=== PATIENT | male | born 1950 | race Caucasian/White ===

== ENCOUNTER 2016-08-17 15:16 | Emergency (ER) | payer OTHER ==
--- NOTE | ~2016-08-17 | ER ---
PATIENT'S NAME: ANGÉLICA [facility]NA [facility] AGE: 65 Y [address] ROOM: [place] [address] LOCATION: ED ADMIT DATE: 08/17/2016 ER/Outpatient Report DISCHARGE DATE: 08/17/2016 FAMILY PHYSICIAN: PHYSICIAN, NO ATTENDING PHYSICIAN: Ambrosio Field Time of Arrival: 1516 hours. Time of Evaluation: 1525 hours. CHIEF COMPLAINT: Increased urination and increased blood sugars. HISTORY OF PRESENT ILLNESS: The patient is a 65-year-old male who presents to the emergency department today with chief complaint of increased urination and high blood sugars. This has been going on for about a month. He called and talked to the [place], they told him that he should come to the emergency department. He does report that he has had a 30-pound weight loss over the past 3 months. First month, he was dieting and exercising, lost about 10 pounds. He is unsure if he lost in the past 20 pounds. Denies any fevers, chills, nausea, vomiting, diarrhea, or constipation. No back pain. No chest pain. No shortness of breath. No abdominal pain. The patient does report he is taking metformin, although he does not take it exactly as prescribed and has forgotten many doses. Denies any blood in the stool. No dark or tarry stools. PAST MEDICAL HISTORY: Ncn-kfngrdk-zrjsecdke diabetes, hypertension, and gastroesophageal reflux disease. PAST SURGICAL HISTORY: Tonsillectomy. SOCIAL HISTORY: The patient denies any tobacco use. Reports occasional alcohol use. Denies any illicit drug use. ALLERGIES: NO KNOWN DRUG ALLERGIES. MEDICATIONS: Please see list. PRIMARY CARE DOCTOR: Dr. Skye ENRIQUEZ. PATIENT'S NAME: ANGÉLICA [facility] AGE: 65 Y [address] ROOM: [place] [address] LOCATION: ED ADMIT DATE: 08/17/2016 ER/Outpatient Report DISCHARGE DATE: 08/17/2016 FAMILY PHYSICIAN: PHYSICIAN, NO ATTENDING PHYSICIAN: Ambrosio Field REVIEW OF SYSTEMS: All systems are reviewed by myself and are negative with the exception of those discussed in the HPI and past medical history. PHYSICAL EXAMINATION: VITAL SIGNS: Weight 64.1 kg. Blood pressure 129/62, pulse of 99, respiratory rate 18, temperature 97.7, and oxygen saturation 97% on room air. GENERAL: The patient is a 65-year-old male, who appears at stated age, in no acute distress at this time. HEENT: Head: Normocephalic, atraumatic. Pupils are equal, round, and reactive to light and accommodation. Extraocular motions are intact. Nares are patent bilaterally. TMs are clear. Oropharynx is clear. NECK: Supple. There is no nuchal rigidity. CARDIOVASCULAR: Regular rate and rhythm. No murmurs, rubs, or gallops. LUNGS: Clear to auscultation bilaterally. No wheezes, rales, or rhonchi. ABDOMEN: Soft, nontender, nondistended. No rebound, rigidity, or guarding. MUSCULOSKELETAL: The patient moves all 4 extremities. SKIN: Warm and dry. No rashes or lesions noted. LABORATORY DATA AND X-RAYS: Accu-Chek is high. Venous blood gas, 7.43/44/61/29/4.3. Urinalysis, 1000 glucose. Lactate is 2.2. CBC is normal. Acetone is negative. CMP is unremarkable except for a sodium 133, potassium 4.4, glucose 610. LFTs are normal. Cardiac enzymes are normal. Procalcitonin 0.11. Repeat Accu-Cheks 595, 510, 432. IMPRESSION: 1. Elevated blood glucose, poorly controlled diabetes mellitus. 2. Weight loss. 3. Initial visit. EMERGENCY DEPARTMENT COURSE: The patient is brought back to the examination room. Seen and evaluated by myself. IV is established. Laboratory analysis and imaging are obtained as described above. The patient is given a liter of normal saline. He is given 6 units of regular insulin subcutaneously. He is given 60 mEq of potassium chloride. The patient has minimal symptoms at this time. I have discussed the results of the workup with him. I have stressed the importance of following up with primary care doctor. I have discussed with him that he may need an increased medication to help with his blood sugars. I have discussed with him that it would be certainly helpful if he took his medicines as prescribed. In regard to his weight loss, I did discuss with him the concern for potential cancer, and I have recommended further workup including possible endoscopies, colonoscopies. The patient's blood sugar is trending downward after the insulin. I have discussed with the patient that he will need to PATIENT'S NAME: ANGÉLICA [facility]NA [facility] AGE: 65 Y [address] ROOM: [place], [place] [address] LOCATION: [facility] ADMIT DATE: 08/17/2016 ER/Outpatient Report DISCHARGE DATE: 08/17/2016 FAMILY PHYSICIAN: PHYSICIAN, NO ATTENDING PHYSICIAN: Ambrosio Field follow up closely with his primary care doctor. He is to call to see if [facility] can get an [facility]. With the patient's minimal symptoms at this time and his laboratory analysis, I do feel he is safe for further outpatient evaluation. I have discussed [id number] instructions including worsening of symptoms or any other concerns to return to the emergency department as soon as possible. The patient is agreeable. He is without further questions at this time. DISPOSITION: The patient is discharged to home in good condition. DO SHANE PAPPAS/bobl /[id number] d: 08/18/[id number] t: 08/19/16 0931, OUTPATIENT REPORT
[2016-08-17 15:50] LABS: BASOPHIL % 0.4 %; BICARBONATE 29.2 mmol/L (18.0-23.0); EOSINOPHIL # 0.1 K/uL (0.0-0.5); HEMATOCRIT 40.5 % (37.0-53.0); HEMOGLOBIN 14.2 g/dL (11.0-16.0); IMMATURE GRANULOCYTE % 0.1 %; LYMPHOCYTE # 1.9 K/uL (0.8-4.0); LYMPHOCYTE % 27.2 %; MCH 31.4 pg (27.0-34.0); MCHC 35.1 gm/dL (32.0-36.5); MCV 89.6 fl (83.0-98.0); MONOCYTE # 0.7 K/uL (0.0-1.0); MONOCYTE % 9.6 %; NEUTROPHIL # (ANC) 4.4 K/uL (1.4-9.0); NEUTROPHIL % 61.7 %; NRBC % 0 /100WBC (0-0.00); PCO2 44 mmHg (35-45); PLATELET COUNT 226 K/uL (150-450); PO2 61 mmHg (80-90); RBC 4.52 M/uL (3.50-5.50); WBC 7.1 K/uL (4.0-11.0)
[2016-08-17 16:00] LABS: BILIRUBIN URINE NEGATIVE (NEGATIVE); BLOOD URINE NEGATIVE /UL (NEGATIVE); GLUCOSE URINE 1000 mg/dL (NEGATIVE); KETONE URINE 5 mg/dL (NEGATIVE); LEUKOCYTES URINE NEGATIVE /UL (NEGATIVE); NITRITE URINE NEGATIVE (NEGATIVE); PH URINE 6.5 (4.0-8.0); PROTEIN URINE NEGATIVE (NEGATIVE); UROBILINOGEN URINE NORMAL (NORMAL)
[2016-08-17 16:01] LABS: COLOR URINE YELLOW (YELLOW); TURBIDITY URINE CLEAR (CLEAR)
[2016-08-17 16:11] LABS: ALBUMIN 3.3 gm/dL (3.5-5.0); ALK PHOS 113 IU/L (33-138); ALT 31 IU/L (12-78); ANION GAP 13.4 (10.0-19.0); AST 20 IU/L (10-40); BLOOD UREA NITROGEN 20 mg/dL (6-24); CALCIUM 8.3 mg/dL (8.5-10.5); CHLORIDE 97 mMol/L (96-110); CO2 27 mMol/L (22-32); CPK 82 IU/L (35-332); CREATININE 1.3 mg/dL (0.6-1.3); ESTIMATED GFR (MDRD EQUATION) 56; POTASSIUM 4.4 mMol/L (3.7-5.1); SODIUM 133 mMol/L (135-145); TOTAL BILIRUBIN 0.6 mg/dL (0.0-1.5); TOTAL PROTEIN 6.3 g/dL (6.0-8.4)
== END 2016-08-17 17:59 | disposition disaster alternative care site (69) ==
LOC: GMED 15:16
PROVIDERS: Emergency Medicine
DX: E11.65 Type 2 diabetes mellitus with hyperglycemia (principal); R63.4 Abnormal weight loss; I10 Essential (primary) hypertension; Z79.4 Long term (current) use of insulin; Z90.89 Acquired absence of other organs
CPT/HCPCS: J7030